=== PATIENT | male | born 1990 | race American Indian/Alaskan Native ===

== ENCOUNTER 2016-06-23 18:26 | Emergency (ER) | payer OTHER ==
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
[2016-06-23 23:04] VITALS: BP 138/90
== END 2016-06-23 23:07 | disposition home or self-care (01) ==
LOC: ED 18:26
DX: M79.1 Myalgia (principal); V49.49XA Driver injured in collision with other motor vehicles in traffic accident, initial encounter; Y93.9 Activity, unspecified; Y92.9 Unspecified place or not applicable; Y99.9 Unspecified external cause status
CPT/HCPCS: 99282

== ENCOUNTER 2017-06-20 22:52 | Emergency (ER) | payer SELFPAY ==
[2017-06-21] MEDS ORDERED: TORADOL IM ONE (03:27)
--- NOTE | 2017-06-21 04:10 | Emergency Department Report ---
- General Chief Complaint: Laceration/Recheck/Suture Stated Complaint: LAC TO RT 5TH DIGIT Time Seen by Provider: 06/21/17 03:24 Source: patient Mode of arrival: Ambulatory Limitations: No Limitations - History of Present Illness Initial Comments: 26-year-old -[place] Citizen male comes in from having a cut to his right pinky finger from a object at work. This occurred on Friday. Patient reports that he is up-to-date on his tetanus shot which he had about 2 years ago. Patient has no other concerns at this time. -: days(s) (1) Extremity Location: Right: Hand (pinky finger) Place: work Patient Tetanus UTD: Yes (2 years ago) Context: accidental - Related Data Previous Rx's Medication Instructions Recorded Last Taken Type Cyclobenzaprine [Flexeril] 10 mg PO QHS PRN #20 tablet 06/23/16 Unknown Rx Ibuprofen [Motrin 800 MG tab] 800 mg PO TID PRN #30 tablet 06/23/16 Unknown Rx Allergies Allergy/AdvReac Type Severity Reaction Status Date / Time No Known Allergies Allergy Unverified 08/18/14 17:29 ED Review of Systems ROS: Stated complaint: LAC TO RT 5TH DIGIT Other details as noted in HPI Constitutional: denies: chills, fever Eyes: denies: eye pain, eye discharge, vision change ENT: denies: ear pain, throat pain Respiratory: denies: cough, shortness of breath, wheezing Cardiovascular: denies: chest pain, palpitations Endocrine: no symptoms reported Gastrointestinal: denies: abdominal pain, nausea, diarrhea Genitourinary: denies: urgency, dysuria Musculoskeletal: denies: back pain, joint swelling, arthralgia Skin: other (cut to his right pinky). denies: rash, lesions Neurological: denies: headache, weakness, paresthesias Psychiatric: denies: anxiety, depression Hematological/Lymphatic: denies: easy bleeding, easy bruising ED Past Medical Hx - Past Medical History Previous Medical History?: No - Surgical History Past Surgical History?: No - Social History Smoking Status: Never Smoker Substance Use Type: None - Medications Home Medications: Home Medications Medication Instructions Recorded Confirmed Last Taken Type Cyclobenzaprine [Flexeril] 10 mg PO QHS PRN #20 tablet 06/23/16 Unknown Rx Ibuprofen [Motrin 800 MG tab] 800 mg PO TID PRN #30 tablet 06/23/16 Unknown Rx ED Physical Exam - General Limitations: No Limitations General appearance: alert, in no apparent distress - Eye Eye exam: Present: normal appearance - ENT ENT exam: Present: mucous membranes moist - Neck Neck exam: Present: normal inspection - Expanded Upper Extremity Exam Right Shoulder Exam: Present: normal inspection, full ROM Upper Arm exam: Present: normal inspection, full ROM Elbow exam: Present: normal inspection, full ROM Forearm Wrist exam: Present: normal inspection, full ROM Hand Wrist exam: Present: laceration (small cut to right fifth digit no sutures required, bleeding controlled) ED Course Vital Signs 06/20/17 06/20/17 23:44 23:52 Temperature 98.8 F Pulse Rate 89 92 H Blood Pressure 142/95 142/95 O2 Sat by Pulse 99 98 Oximetry ED Medical Decision Making - Medical Decision Making Patient has been evaluated by this provider fast track. Examination of right fifth digit shows only be a superficial laceration that requires no sutures. This provider placed a Band-Aid on finger. Discussed the patient to keep it clean and dry. He can follow up with his primary care provider if there is any concerns or any signs of infection. Patient verbalized understanding Critical care attestation.: If time is entered above; I have spent that time in minutes in the direct care of this critically ill patient, excluding procedure time. ED Disposition Clinical Impression: Cut of finger Disposition: DC-01 TO HOME OR SELFCARE Is pt being admited?: No Does the pt Need Aspirin: No Condition: Stable Additional Instructions: Please keep cut clean and dry. You may apply Neosporin or or a triple antibiotic cream. You may take Tylenol or Motrin for pain. Referrals: GERRY HERNANDEZ MD [Primary Care Provider] - 3-5 Days Forms: Work/School Release Form(ED), Accompanied Note
[2017-06-21 05:39] VITALS: BP 140/91
== END 2017-06-21 04:19 | disposition home or self-care (01) ==
LOC: ED 22:52
DX: S61.216A Laceration without foreign body of right little finger without damage to nail, initial encounter (principal); W45.8XXA Other foreign body or object entering through skin, initial encounter; Y93.89 Activity, other specified; Y99.0 Civilian activity done for income or pay; Y92.69 Other specified industrial and construction area as the place of occurrence of the external cause
CPT/HCPCS: 99282

== ENCOUNTER 2017-10-30 10:57 | Emergency (ER) | payer OTHER ==
[2017-10-30 11:47] VITALS: BP 160/87
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
[2017-10-30] MEDS ORDERED: NORCO 5/325 PO ONE (15:02)
[2017-10-30] MEDS ORDERED: FLEXERIL PO ONE (15:02)
--- NOTE | 2017-10-30 15:39 | XRay Report ---
LUMBOSACRAL SPINE, 3 VIEWS: History: Back pain Findings: The vertebral bodies, disk spaces and posterior elements are intact. No compression deformity or malalignment. The SI joints are symmetric and unremarkable. Impression: 1. No evidence for acute injury to the lumbar spine.
== END 2017-10-30 16:43 | disposition home or self-care (01) ==
LOC: ED 10:57
DX: S39.012A Strain of muscle, fascia and tendon of lower back, initial encounter (principal); M62.830 Muscle spasm of back; V49.09XA Driver injured in collision with other motor vehicles in nontraffic accident, initial encounter; Y93.89 Activity, other specified; Y99.8 Other external cause status; Y92.488 Other paved roadways as the place of occurrence of the external cause
CPT/HCPCS: 72100; 99283